=== PATIENT | male | born 1960 | race Caucasian/White ===

== ENCOUNTER 2018-08-17 19:05 | Observation (INO) | payer OTHER ==
[~2018-08-17] VITALS: Ht 177.8 cm; Wt 86.3 kg
[2018-08-17 19:29] VITALS: Ht 177.8 cm; Wt 86.3 kg
--- NOTE | 2018-08-17 19:31 | NUR ---
EKG DONE IN TRIAGE
--- NOTE | 2018-08-17 21:22 | NUR ---
PT PRESENTED TO ED FOR FEVER, CHILLS, "RUNNY NOSE", AND GENERALIZED WEAKNESS X 3 DAYS, AND NONPRODUCTIVE COUGH AND INTERMITTENT WHEEZING X 1 DAY. PT IN NAD. BREATHING EVEN, UNLABORED, BUT RAPID. PT IS A&OX4, SPEAKING FULL CLEAR SENTENCES. PT STATES INTERMITTENT DIZZINESS BUT DENIES ANY RECENT FALLS OR SYNCOPE. PT STATES HX A FIB. CM AND [address] PT AFIB ON MONITOR. FAMILY AT BEDSIDE. WILL CONTINUE TO MONITOR.
--- NOTE | 2018-08-17 21:34 | NUR ---
LAB AT BEDSIDE
[2018-08-17 21:49] LABS: BASOPHIL % 0.3 % (0-2); PLATELET COUNT 166 x10^3mcL (130-400); RED CELL DISTRIBUTION WIDTH 13.2 % (11.5-14.5)
[2018-08-17 21:58] LABS: CALCIUM 8.5 mg/dL (8.5-10.1); CARBON DIOXIDE 24.2 mmol/L (21-32); CHLORIDE SERUM 101 mmol/L (98-107); CREATININE SERUM 1.4 mg/dL (0.7-1.3); GFR1 55 mL/min; GLUCOSE SERUM 184 mg/dL (74-106); POTASSIUM SERUM 3.3 mmol/L (3.5-5.1); SODIUM SERUM 138 mmol/L (136-145)
[2018-08-17 22:02] LABS: ALKALINE PHOSPHATASE 87 U/L (46-116); AST/SGOT 31 U/L (15-37); TOTAL PROTEIN, SERUM 7.4 g/dL (6.4-8.2)
[2018-08-17 22:03] LABS: ALBUMIN 3.2 g/dL (3.4-5.0)
[2018-08-17 22:20] LABS: ALT/SGPT < 6.0 U/L (16-63)
[2018-08-17 22:51] LABS: microscopic required? YES; urine erythrocyte NEGATIVE (NEGATIVE)
[2018-08-17] MEDS ORDERED: AMLODIPINE BESY10 M2 PO (23:50)
[2018-08-17] MEDS ORDERED: COMTAN200 MG PO (23:52)
[2018-08-17] MEDS ORDERED: QUETIAPINE FUMA25 M1 PO (23:53)
[2018-08-17] MEDS ORDERED: SINEMET 25-1001 TAB PO (23:54)
[2018-08-17] MEDS ORDERED: TOPROL XL25 MG PO (23:56)
--- NOTE | 2018-08-18 01:33 | NUR ---
REPORT RECEIVEDE FROM ELIAS CHACON.
--- NOTE | 2018-08-18 01:35 | NUR ---
REPORT GIVEN TO NEVILLE GRIFFIN
--- NOTE | 2018-08-18 01:48 | NUR ---
PT RESTING ON ED GURNEY, RESP E/U, NO DISTRESS NOTED, SPEECH IS CLEAR, ON FULL CM, CALL LIGHT WITHIN REACH.
--- NOTE | 2018-08-18 01:58 | NUR ---
REPORT GIVEN TO EILAS LORENZO TO ASSUME CARE OF PT.
--- NOTE | 2018-08-18 02:30 | NUR ---
PATIENT ARRIVED TO UNIT VIA [facility]ERNY ABLE TO AMBULATE AT HOME INDEPENDENTLY, HOWEVER GENERALIZED WEAKNESS REPORTED. PATIENT IS ALERT AND ORIENTED X4 ABLE TO VERBALIZE NEEDS. NOTED TREMORS TO LEFT ARM AND LEFT. ALL PREVIOUS MEDICAL HISTORY OBTAINED FROM PATIENT DIRECTLY. IVF STARTED TO LAC AT 80ML/HR D5 1/2 NS. TELE 44 SR WITH PVCS. CALL LIGHT WITHIN REACH. NON-PRODUCTIVE COUGH REPORTED AND CURRENTLY ON 3 LITERS NASAL CANNULA O2 SAT 94%, CLEAR TO DIMINISHED LUNG SOUNDS NOTED.
[2018-08-18 02:36] VITALS: BP 114/72
[2018-08-18 06:16] LABS: PLATELET COUNT 141 x10^3mcL (130-400); RED CELL DISTRIBUTION WIDTH 13.6 % (11.5-14.5)
[2018-08-18 06:38] VITALS: BP 105/66
--- NOTE | 2018-08-18 06:38 | NUR ---
JOSE (END FINDER TWISTING DEPARTMENT) REPORTED HIGH TEMPERATURE, COOLING MEASURES STARTED.
[2018-08-18 06:51] LABS: CALCIUM 7.9 mg/dL (8.5-10.1); CARBON DIOXIDE 22.9 mmol/L (21-32); CHLORIDE SERUM 106 mmol/L (98-107); CREATININE SERUM 0.9 mg/dL (0.7-1.3); GFR1 > 60 mL/min; GLUCOSE SERUM 130 mg/dL (74-106); POTASSIUM SERUM 3.2 mmol/L (3.5-5.1); SODIUM SERUM 141 mmol/L (136-145)
--- NOTE | 2018-08-18 07:30 | NUR ---
SPOKE WITH PT THIS MORNING ABOUT HOME MEDICATION. PT ASKING TO TAKE SINEMET AT 0730 LIKE HE NORMALLY TAKES AT HOME. INSTRUCTED PT I WOULD CALL PHARMACY TO GET ORDER CHANGED. PHARMACIST CHANGED ORDER TO BE GIVEN AT 0730. WENT TO INFORM PT PT STATES "MY BROUGHT IT FOR ME AND I ALREADY TOOK IT." INSTRUCTED PT TO NOT TAKE HOME MEDS AND TO HAVE TAKE HOME MEDS BACK HOME. PT TOLD THAT HIS HOME MEDICATIONS WILL BE PROVIDED BY HOSPITAL. PT AND VERBALIZED UNDERSTANDING.
--- NOTE | 2018-08-18 07:30 | NUR ---
RECEIVED FROM SHIP UNLOADER ELIAS. Elie/SATHISH. TELE#[id number]. RESPIRATIONS EQUAL AND UNLABORED ON 3L NC. PT STATES "I FEEL SHORT OF BREATH WHEN I AM COUGHING A LOT. PT REPOSITIONED SITTING UP IN BED. AT BEDSIDE. DENIES ANY PAIN AT THIS TIME. PT HAS TREMORS IN [place] AND BLE, OCCASIONAL TREMORS IN [place]. IV TO LAC PATENT AND INFUSING. NO REDNESS OR SWELLING NOTED. WILL CONTINUE TO MONITOR. CALL LIGHT IN REACH. BED IN LOWEST POSITION.
--- NOTE | 2018-08-18 08:50 | NUR ---
PT C/O FEELING FEVERISH. TEMPORAL TEMPERATURE CHECK 102.2. COOLING MEASURES PROVIDED. WILL GIVEN TYLENOL PER EMAR. WILL CONTINUE TO MONITOR.
--- NOTE | 2018-08-18 08:59 | NUR ---
SPOKE WITH DR. ONEIL REGARDING PT C/O COUGH AND POTASSIUM LEVEL OF 3.3. PER DR. ONEIL ORDERED POTASSIUM 40MEQ PO ONCE, ROBITUSSIN 100MG PO Q4HR PRN COUGH CONFIRMED ORDERS READ BACK. WILL PUT IN ORDERS.
--- NOTE | 2018-08-18 09:51 | NUR ---
DR. ONEIL AT BEDSIDE WITH PT. PER DR. ONEIL PT WILL STAY ANOTHER NIGHT TO GET FEVER UNDERCONTROLL. PT DR. ONEIL HOLD METROPOLOL IF SBP<100. PER DR. ONEIL HOLD AM DOSE OF NORVASC.
--- NOTE | 2018-08-18 10:05 | NUR ---
PT SITTING UP IN BED WITH AT BEDSIDE. CHANGED ICE BACK TO EACH ARM. GIVEN TYLENOL FOR TEMP OF 102.2. GIVE PO MEDS. TOLERATED WELL. WILL REASSESS TEMP. WILL CONTINUE TO MONITOR. CALL LIGHT IN REACH. BED IN LOWEST POSITION
[2018-08-18 10:24] VITALS: BP 122/68
--- NOTE | 2018-08-18 11:04 | NUR ---
SPOKE WITH PHARMACIST REGARDING PT SINEMET. PHARMACIST WILL CHANGE ORDERED TIMES TO MATCH PT HOME MEDS
[2018-08-18 11:28] LABS: BAND NEUTROPHIL 1 % (0-10); BASOPHIL 0 % (0-2); MONOCYTE 16 % (0-7); SEGMENTED NEUTROPHILS 74 % (37-75)
[2018-08-18 11:29] LABS: rbc morphology (normal/abnorm) NORMAL (NORMAL)
[2018-08-18 11:30] LABS: PLATELET MORPHOLOGY PLATELETS DECREASED
--- NOTE | 2018-08-18 13:01 | NUR ---
PT REPOSITIONED SITTING UP IN BED. IV ANTIBIOTICS GIVEN ORDERED. IV PATENT AND INFUSING. NO REDNESS OR SWELLING NOTED. PT TEMP WAS 97.5. PT STILL FEELS WARM, ASKED TO KEEP ICE PACKS IN PLACE. WILL CONTINUE TO MONITOR. CALL LIGHT IN REACH. BED IN LOWEST POSITION.
--- NOTE | 2018-08-18 15:12 | NUR ---
PT SITTING UP IN BED. PT C/O FEELING WARM. ORAL TEMP CHECK WAS 100.9. GIVEN TYLENOL PO. WILL RECHECK TEMP. GIVEN NEW ICE BACKS. IV PATENT AND INFUSING. PT C/O COUGHT. GIVEN ROBITUSSIN PO. WILL CONTINUE TO MONITOR. CALL LIGHT IN REACH. BED IN LOWEST POSITION.
--- NOTE | 2018-08-18 16:50 | NUR ---
PT TEMP CHECKED WAS 100.9. GIVEN MORE ICE PACKS TO ARMS. PT EATING ICE CHIPS. WILL CONTINUE TO MONITOR. CALL LIGHT IN REACH. BED IN LOWEST POSITION.
[2018-08-18 17:00] VITALS: BP 120/76
--- NOTE | 2018-08-18 19:08 | NUR ---
PT SITTING UP IN BED. TEMP RECHECKED WAS 100.6. GIVEN TYLENOL PO. PT C/O COUGH GIVEN ROBITUSSIN PO. NO ACUTE RESP DISTRESS NOTED. WILL ENDORSE TO WOOD LATHER RN.
[2018-08-18 19:35] VITALS: BP 133/84
--- NOTE | 2018-08-18 19:35 | NUR ---
RECEIVED PT AWAKE ALERT AND VERBALLY RESPONSIVE.BREATHING EASY AND NON-LABORED.EXPIRATORY WHEEZES ON AUSCULTATION.ON AND OFF DRY COUGHING.NO CONGESTION NOTED.LATEST TEMP CHECKED ORALLY @ 100.8.F.CONTINOUS COOLING MEASURES IN PLACED.WILL CONTINUE TO MONITOR.
--- NOTE | 2018-08-18 21:14 | NUR ---
TEMP RECHECKED @ 99.2 F ORALLY.DUE MEDS GIVEN.CONTINOUS COOLING MEASURES IN PLACED.WILL CONTINUE TO MONITOR.
--- NOTE | 2018-08-19 03:43 | NUR ---
TEMP RECHECKED 99.1F ORALLY,CONTINUED WITH ON AND OFF DRY COUGHING.ROBITUSSIN 5 ML PO AND TYLENOL 650 MG PO ADMINISTERED.CONTINOUS COOLING MEASURES IN PLACED.WILL CONTINUE TO MONITOR.
--- NOTE | 2018-08-19 04:45 | NUR ---
PT SLEPT WELL.BREATHING EASY AND NON-LABORED WITH ON AND OFF DRY COUGHING.ROBITUSSIN 5 ML PO X1 GIVEN WITH GOOD RESULT.LATEST TEMP @ 96.8F.WILL CONTINUET TO MONITOR.
[2018-08-19 05:14] VITALS: BP 131/77
[2018-08-19 07:21] LABS: BASOPHIL % 0.4 % (0-2); RED CELL DISTRIBUTION WIDTH 13.3 % (11.5-14.5)
--- NOTE | 2018-08-19 07:30 | NUR ---
RECEIVED PT FROM FOUNDRY FINISHER RN. Elie/SATHISH. TELE#44. DENIES CHEST PAIN/PRESSURE. RESPIRATIONS EQUAL AND UNLABORED ON 3L NC. DENIES SOB. DENIES ANY PAIN AT THIS TIME. GIVEN MORNING MEDS ORDER. TOLERATED WELL. IV TO LAC PATENT AND INFUSING. NO REDNESS OR SWELLING NOTED. WILL CONTINUE TO MONITOR. CALL LIGHT IN REACH. BED IN LOWEST POSITION.
[2018-08-19 07:40] LABS: PLATELET COUNT 123 x10^3mcL (130-400)
[2018-08-19 08:08] LABS: CALCIUM 7.9 mg/dL (8.5-10.1); CARBON DIOXIDE 24.3 mmol/L (21-32); CHLORIDE SERUM 102 mmol/L (98-107); CREATININE SERUM 0.9 mg/dL (0.7-1.3); GFR1 > 60 mL/min; GLUCOSE SERUM 118 mg/dL (74-106); POTASSIUM SERUM 3.2 mmol/L (3.5-5.1); SODIUM SERUM 134 mmol/L (136-145)
--- NOTE | 2018-08-19 09:46 | NUR ---
PT SITTING UP IN BED WATCHING TV. AT BEDSIDE. PT TEMPORAL TEMP WAS ELEVATED 101 AND ORAL TEMP WAS 99.8. GIVEN TYLENOL PO. PT ALSO C/O COUGH GIVEN ROBITUSSIN PO. TOLERATED MORNING MEDS WELL. WILL CONTINUE TO MONITOR. CALL LIGHT IN REACH. BED IN LOWEST POSITION.
[2018-08-19 09:57] VITALS: BP 130/87
--- NOTE | 2018-08-19 11:16 | NUR ---
PT SITTING UP IN BED. AT BEDSIDE. PT STATES HE FEELS FEVERISH. TEMP WAS 99.2 ORAL AND 100.8 TEMPORAL. COOLING MEASURES PROVIDED. IV ANTIBIOTICS INFUSING ORDERED. WILL CONTINUE TO MONITOR. CALL LIGHT IN REACH. BED IN LOWEST POSITION.
[2018-08-19 12:30] VITALS: BP 131/79
--- NOTE | 2018-08-19 13:18 | NUR ---
DR. ONEIL AT [facility]. PER DR. ONEIL IF PT FEVER IS STILL LOW GRADE BY DINNER TIME PT WILL BE OKAY TO DISCHARGE HOME. DR. ONEIL TOLD PT HE WILL BE SENT HOME WITH ANTIBIOTIC LEVAQUIN FOR 5 DAYS.
[2018-08-19] MEDS ORDERED: LEVAQUIN750 MG PO (13:20)
--- NOTE | 2018-08-19 13:39 | NUR ---
PT IN BED RESTING. IV ANTIBIOTICS INFUSING ORDERED. RESPIRATIONS EQUAL AND UNLABORED ON 3L NC. DENIES SOB. WILL CONTINUE TO MONITOR. CALL LIGHT IN REACH. BED IN LOWEST POSITION.
--- NOTE | 2018-08-19 14:44 | NUR ---
PT SITITNG UP IN BED, AT BEDSIDE. ORAL TEMP WAS 101.2. GIVEN COOLING MEASURES. WILL CONTINUE TO MONITOR. CALL LIGHT IN REACH. BED IN LOWEST POSITON.
[2018-08-19 14:54] VITALS: BP 131/79
[2018-08-19 16:27] VITALS: BP 138/88
--- NOTE | 2018-08-19 17:06 | NUR ---
SPOKE WITH DR. ONEIL REGARDING PT FEVER. PER DR. ONEIL KEEP PT ONE MORE NIGHT. DR. ONEIL ORDER CMP, CBC, AND BLOOD CULTURES X2 ORDERS CONFIRMED TORB.
--- NOTE | 2018-08-19 17:45 | NUR ---
PT SITTING UP IN BED. CHANGED LINENS AND GOWN. REPOSITIONED SITTING UP IN BED. PT EATING DINNER. IV PATENT AND INFUSING. NO REDNESS OR SWELLING NOTED. WILL CONTINUE TO MONITOR. CALL LIGHT IN REACH. BED IN LOWEST POSITION.
--- NOTE | 2018-08-19 18:19 | NUR ---
PT SITTING UP IN BED. AT BEDSIDE. GIVEN PO MEDS. TOLERATED WELL. NO ACUTE RESP DISTRESS NOTED ON 3L NC. DENIES SOB. PT AMBULATED TO BATHROOM, STEADY GAIT. WILL CONTINUE TO MONITOR.
--- NOTE | 2018-08-19 18:57 | NUR ---
PT SITITING UP IN BED. AT BEDSIDE. NO ACUTE RESP DISTRESS NOTED ON 3L NC. IV PATENT AND INFUSING. NO REDNESS OR SWELLING NOTED. WILL ENDORSE TO CLOTH CUTTER RN. CALL LIGHT IN REACH. BED IN LOWEST POSITION.
[2018-08-19 19:10] VITALS: BP 130/76
--- NOTE | 2018-08-19 19:10 | NUR ---
RECEIVED PT AWAKE ALERT AND VERBALLY RESPONSIVE.BREATHING EASY AND NON-LABORED WITH ON AND OFF DRY COUGHING.DENIES SOB.NO CONGESTION NOTED,LATEST TEMP CHECKED ORALLY @ 98.6F.DENIES CHESTPAIN.BP 130/76 MMHG,HR 102.CONTINOUS COOLOING MEASURES IN PLACED.WILL CONTINUE TO MONITOR.
--- NOTE | 2018-08-20 00:04 | NUR ---
LATEST TEMP RECHECKED @ 98.9F.WILL CONTINUE TO MONITOR.
--- NOTE | 2018-08-20 04:50 | NUR ---
PT SLEPT WELL.BREATHING EASY AND NON-LABORED WITH ON AND OFF DRY COUGHING.ROBITUSSIN 5 ML PO ADMINISTERED WITH GOOD RESULT.NO ASE FROM VIBRAMYCIN IV ATB.CONTINOUS COOLING MEASURES IN PLACED.ALL NEEDS MET.WILL CONTINUE TO MONITOR.
--- NOTE | 2018-08-20 05:09 | NUR ---
LATEST TEMP @ 98.2 F ORALLY.WILL ENDORSE TO AM NURSE.
[2018-08-20 05:32] VITALS: BP 146/86
[2018-08-20 07:16] LABS: BASOPHIL % 0.4 % (0-2); RED CELL DISTRIBUTION WIDTH 13.2 % (11.5-14.5)
[2018-08-20 07:22] LABS: PLATELET COUNT 128 x10^3mcL (130-400)
--- NOTE | 2018-08-20 07:40 | NUR ---
RECEIVED PATIENT SITTING UP IN BED A/O X4, CLEAR SPEECH, DENIES WALLER OR DIZZINESS. BREATHING EVEN UNLABBORED ON 2 3 L/MIN VIA NC, BREATHING EVEN UNLABBORED, DENIES SOB, NO DISTRESS NOTED. PATIENT DENIES ANY PAIN. IV TO LAC INTACT INFUSING D5 1/2 NS AT 80 ML/HR FREE FROM REDNESS AND INFILTRATION. PATIENT IS CALM WITH CARE. INSTRUCTED TO CALL FOR ASSISTANCE IF NEEDED. SAFETY PRECAUTIONS MAINTAINED. WILL MONITOR.
[2018-08-20 08:00] LABS: ALKALINE PHOSPHATASE 80 U/L (46-116); ALT/SGPT 33 U/L (16-63); AST/SGOT 34 U/L (15-37); BILIRUBIN TOTAL 0.6 mg/dL (0.20-1.00); CALCIUM 7.9 mg/dL (8.5-10.1); CARBON DIOXIDE 26.9 mmol/L (21-32); CHLORIDE SERUM 99 mmol/L (98-107); CREATININE SERUM 0.8 mg/dL (0.7-1.3); GFR1 > 60 mL/min; GLUCOSE SERUM 115 mg/dL (74-106); POTASSIUM SERUM 3.1 mmol/L (3.5-5.1); SODIUM SERUM 134 mmol/L (136-145); TOTAL PROTEIN, SERUM 6.4 g/dL (6.4-8.2)
[2018-08-20 08:01] LABS: ALBUMIN 2.3 g/dL (3.4-5.0)
--- NOTE | 2018-08-20 12:55 | NUR ---
PATIENT RESTING IN BED COMFORTABLY NO DISTRESS NOTED. AT BEDSIDE. IVF INTACT INFUSING WELL TO RFA. ALL NEEDS ATTENDED TO. SAFETY PRECAUTIONS MAINTAINED.
--- NOTE | 2018-08-20 13:20 | NUR ---
SPOKE WTIH DR. ONEIL AND INFORMED HIM OF K 3.1. RECEIVED T.O FOR POTASSIUM CHLORIDE 40 MEQ PO ONCE. ALSO INFORMED DR. ONEIL PATIENT WAS ON O2 3 L/MIN VIA NC, WEANED DOWN TO O2 2 L/MIN VIA NC WITH O2 SAT 92%. PER DR. ONEIL PLACE PATIENT ON ROOM AIR AND RECHECK O2 SAT IN 5 MINUTES. IF O2 SAT LESS THEN 88% PLACE ORDER FOR INTEGRATION SOFTWARE DEVELOPER TO ARRANGE HOME O2. WILL CARRY OUT ORDER.
--- NOTE | 2018-08-20 13:30 | NUR ---
PLACED PATIENT ON ROOM AIR (AT 1325) AND RECHECKED O2 SAT 5 MINUTES AFER PLACED ON ROOM AIR AND OBTAINED A O2 SAT READING OF 91-94% ON ROOM. AT BEDSIDE. SAFETY PRECAUTIONS MAINTAINED. WILL MONITOR.
[2018-08-20 14:34] VITALS: BP 125/80
--- NOTE | 2018-08-20 15:06 | NUR ---
PATIENT SITTING UP IN BED, NO DISTRESS NOTED. DUE MEDICATION GIVEN. AT BEDSIDE, ALL NEEDS ATTENDED TO. SAFETY PRECAUTIONS MAINTAINED. WILL MONITOR.
[2018-08-20 15:47] VITALS: BP 125/80
--- NOTE | 2018-08-20 16:25 | NUR ---
PATIENT STABLE FOR DISCHARGE HOME. DISCHARGE INSTRUCTIONS, PRESCRIPTION, AND EDUCATION REVIEWED WITH PATIENT AND AT BEDSIDE. PATIENT VERBALIZED UNDERSTANDING TO FOLLOW UP WITH PCP ON 08/31/18. ALL QUESTIONS AND CONCERNS ADDRESSED. IV TO RFA REMOVED, CATH INTACT. ID BANDS REMOVED, TELE MONITOR REMOVED. PATIENT INSTRUCTED TO NOTIFY STAFF WHEN HE IS READY TO BE ASSISTED DOWN TO LOBBY. SAFETY PRECAUTIONS MAINTAINED. WILL MONITOR.
--- NOTE | 2018-08-20 16:50 | NUR ---
PATIENT STABLE FOR DISCHARGE. PATIENT ASSISTED DOWN TO LOBBY VIA WHEELCHAIR ACCOMPANIED BY NURSE AID AND . ALL PERSONAL BELONGINGS SENT HOME WITH PATIENT.
== END 2018-08-20 16:50 | disposition home or self-care (01) | DRG 202 ==
LOC: ED 19:05 → DU 23:47
PROVIDERS: Emergency Medicine; ADMIT Internal Medicine Pulmonary Disease
DX: J20.9 Acute bronchitis, unspecified (principal); N39.0 Urinary tract infection, site not specified; I48.91 Unspecified atrial fibrillation; I10 Essential (primary) hypertension; G20 Parkinson's disease
CPT/HCPCS: 87804; G0378; J0696; J1956; J3490; J7030; J7040